=== PATIENT | female | born 1950 | race Caucasian/White ===

== ENCOUNTER → 2017-02-06 | Outpatient (CLI) | payer BC, OTHER ==
--- NOTE | 2017-02-06 21:02 | REP ---
Clinical: Dyspnea and wheezing . Comparison: 05/20/2016 . Technique: PA and lateral. Findings: The mediastinum and cardiac silhouette are normal. The lung resendiz are clear and without acute consolidation, effusion, or pneumothorax. The skeletal structures are intact and normal. Impression: 1. No acute cardiopulmonary process. Signed by Calixto Garcia MD 02/06/2017 08:53 P
== END ==
LOC: M WUC 09:55
PROVIDERS: ATTEND Family Medicine
DX: R06.00 Dyspnea, unspecified (principal); R06.2 Wheezing

== ENCOUNTER → 2017-03-22 | Outpatient (CLI) | payer MEDICARE, OTHER, BC ==
[2017-03-22 14:13] LABS: MEAN CORPUSCULAR HEMOGLOBIN 30.5 pg (27.0-33.0); MEAN CORPUSCULAR HGB CONC 31.7 g/dl (32.0-36.5); RED CELL DISTRIBUTION WIDTH 12.9 % (11.5-14.5); WHITE BLOOD COUNT 6.6 10^3/uL (4.0-10.0)
[2017-03-22 14:58] LABS: ALBUMIN 3.6 GM/DL (3.2-5.2); ALKALINE PHOSPHATASE 92 U/L (45-117); ALT/SGPT 18 U/L (12-78); ANION GAP 7 MEQ/L (8-16); AST/SGOT 13 U/L (15-37); BILIRUBIN,TOTAL 0.4 MG/DL (0.2-1.0); BLOOD UREA NITROGEN 7 MG/DL (7-18); CALCIUM LEVEL 9.3 MG/DL (8.8-10.2); CARBON DIOXIDE LEVEL 28 MEQ/L (21-32); CHLORIDE LEVEL 108 MEQ/L (98-107); CHOLESTEROL LEVEL 187 MG/DL (<200); GLOMERULAR FILTRATION RATE > 60.0 (>45); GLUCOSE, FASTING 83 MG/DL (80-110); POTASSIUM SERUM 4.4 MEQ/L (3.5-5.1); SODIUM LEVEL 143 MEQ/L (136-145); THYROXINE (T4) 15.6 UG/DL (4.5-12.0); TOTAL PROTEIN 6.6 GM/DL (6.4-8.2); TRIGLYCERIDES LEVEL 184 MG/DL (<150)
== END ==
LOC: M WUC 09:54
PROVIDERS: ATTEND Family Medicine
DX: D64.9 Anemia, unspecified (principal); R53.83 Other fatigue

== ENCOUNTER → 2017-09-20 | Outpatient (CLI) | payer MEDICARE, OTHER, BC | LOC: M WUC 09:56 | DX: R05 Cough (principal) | CPT/HCPCS: 71046 ==

== ENCOUNTER → 2017-10-30 | Outpatient (REF) | payer MEDICARE, OTHER | LOC: M LAB REF 10:44 | DX: C50.911 Malignant neoplasm of unspecified site of right female breast (principal) | CPT/HCPCS: 88305 ==

== ENCOUNTER → 2017-11-07 | Day surgery (SDC) | payer MEDICARE, BC, OTHER ==
[~2017-11-07] MED LIST: KETOROLAC 30 MG/ML VIAL (J1885) As Ordered; KETOROLAC 30 MG/ML VIAL (J1885) IV; LIDOCAINE 1% MDV 20ML VIAL As Ordered; LIDOCAINE 2% INJ 100 MG/5 ML SDV (FOR ANES.) As Ordered; LR 1,000 ML IV; MIDAZOLAM INJ 2 MG/2 ML VIAL (J2250) As Ordered; NORCO, ANEXSIA 5/325MG TABLET (HYDROcodone/ACETAMINOPHEN) PO; ONDANSETRON 4MG/2ML VIAL (J2405) As Ordered; ONDANSETRON 4MG/2ML VIAL (J2405) IV; PERCOCET 5MG/325MG TAB As Ordered; PHENYLephrine HCL 500 MCG/5 ML (100MCG/ML) SYRINGE (J2370) As Ordered; PROPOFOL 200 MG/20 ML VIAL As Ordered; dexameTHASONE 4 MG/ML 1ML VIAL (J1100) As Ordered; ePHEDrine SULFATE 25 MG/5 ML(5MG/ML) SYRINGE As Ordered; fentaNYL 100 MCG/2 ML INJECTION (J3010) As Ordered
[2017-11-07] MEDS: LIDOCAINE 5% (LIDODERM) PATCH TD (08:15)
[2017-11-07] MEDS: ceFAZolin SOD 1 GM in D5W MINI-BAG PLUS 50 ML IV (12:21)
[2017-11-07] MEDS: LIDOCAINE 1% SDV INJ 30 ML VIAL As Ordered (12:32)
[2017-11-07] MEDS: BUPIVACAINE/EPIN 0.5% 30 ML VIAL As Ordered (12:32)
[2017-11-07] MEDS: METHYLENE BLUE 0.5% (5MG/ML) 10 ML AMP (PROVAYBLUE)(Q9968 PER 1MG) As Ordered (12:32)
== END | disposition home or self-care (01) ==
LOC: M SDC 08:02
DX: C50.411 Malignant neoplasm of upper-outer quadrant of right female breast (principal); E03.9 Hypothyroidism, unspecified; Z79.899 Other long term (current) drug therapy; F17.210 Nicotine dependence, cigarettes, uncomplicated; Z17.0 Estrogen receptor positive status [ER+]
CPT/HCPCS: 19125

== ENCOUNTER 2017-11-27 14:09 | Outpatient (RCR) | payer MEDICARE, BC, OTHER | END 2017-12-08 | LOC: M ONCR 14:09 | DX: C50.411 Malignant neoplasm of upper-outer quadrant of right female breast (principal) ==

== ENCOUNTER 2017-12-10 14:04 | Outpatient (RCR) | payer MEDICARE, BC, OTHER | END 2018-01-08 | LOC: M ONCR 14:04 | DX: C50.411 Malignant neoplasm of upper-outer quadrant of right female breast (principal) | CPT/HCPCS: 77300 ==

== ENCOUNTER 2018-01-09 09:56 | Outpatient (RCR) | payer MEDICARE, BC, OTHER | END 2018-02-08 | LOC: M ONCR 09:56 | DX: C50.411 Malignant neoplasm of upper-outer quadrant of right female breast (principal) | CPT/HCPCS: 77336 ==

== ENCOUNTER → 2018-02-20 | Outpatient (CLI) | payer MEDICARE, BC, OTHER | LOC: M ONCR 10:13 | DX: C50.411 Malignant neoplasm of upper-outer quadrant of right female breast (principal) | CPT/HCPCS: G0463 ==

== ENCOUNTER → 2018-04-22 | Outpatient (CLI) | payer MEDICARE, BC, OTHER | LOC: M WUC 13:15 | DX: R05 Cough (principal) | CPT/HCPCS: 71046 ==

== ENCOUNTER → 2018-05-21 | Outpatient (CLI) | payer MEDICARE, BC, OTHER | LOC: M ONCR 12:53 | DX: C50.411 Malignant neoplasm of upper-outer quadrant of right female breast (principal) ==

== ENCOUNTER → 2018-08-13 | Outpatient (CLI) | payer MEDICARE, BC, OTHER ==
[~2018-08-13] MED LIST changes: -KETOROLAC 30 MG/ML VIAL (J1885) As Ordered; -KETOROLAC 30 MG/ML VIAL (J1885) IV; +LEVO200T4 PO; -LIDOCAINE 1% MDV 20ML VIAL As Ordered; -LIDOCAINE 2% INJ 100 MG/5 ML SDV (FOR ANES.) As Ordered; -LR 1,000 ML IV; -MIDAZOLAM INJ 2 MG/2 ML VIAL (J2250) As Ordered; -NORCO, ANEXSIA 5/325MG TABLET (HYDROcodone/ACETAMINOPHEN) PO; -ONDANSETRON 4MG/2ML VIAL (J2405) As Ordered; -ONDANSETRON 4MG/2ML VIAL (J2405) IV; -PERCOCET 5MG/325MG TAB As Ordered; -PHENYLephrine HCL 500 MCG/5 ML (100MCG/ML) SYRINGE (J2370) As Ordered; -PROPOFOL 200 MG/20 ML VIAL As Ordered; +SILV40CR EXT; -dexameTHASONE 4 MG/ML 1ML VIAL (J1100) As Ordered; -ePHEDrine SULFATE 25 MG/5 ML(5MG/ML) SYRINGE As Ordered; -fentaNYL 100 MCG/2 ML INJECTION (J3010) As Ordered
--- NOTE | 2018-08-13 17:25 | REP ---
Chest x-ray: Two views. History: Cough. Comparison chest x-ray: April 22, 2018. Findings: The lungs are symmetrically aerated and free of infiltrate. Pleural angles are sharp. Heart is not enlarged. The aorta is calcific and a little tortuous. There are mild degenerative changes in the thoracic spine. There are surgical clips projecting over the right chest. These may be in the right breast soft tissues. Impression: No active disease. Electronically Signed by Reed Kay MD 08/13/2018 05:51 P
[2018-08-14 09:56] LABS: INFLUENZA A AMPLIFICATION NEGATIVE (NEGATIVE); INFLUENZA B AMPLIFICATION NEGATIVE (NEGATIVE)
== END ==
LOC: M WUC 16:05
PROVIDERS: ATTEND Internal Medicine
DX: M51.34 Other intervertebral disc degeneration, thoracic region (principal); R05 Cough; R50.9 Fever, unspecified

== ENCOUNTER → 2018-11-06 | Outpatient (CLI) | payer MEDICARE, BC, OTHER ==
--- NOTE | 2018-11-07 07:25 | RADONC ---
RADIATION ONCOLOGY FOLLOWUP NOTE: DATE: 11/06/2018 CHART NUMBER: [id number] DIAGNOSIS: Right breast cancer. STAGE: I A, T1c N0M0, grade 3, ER positive, MI positive, HER2/jun negative. ECOG PERFORMANCE STATUS: 0 Ms. Stern is a very pleasant 68-year-old white female with the diagnosis of a stage I A, T1c N0M0, grade 3, ER positive, MI positive, HER2/jun negative, infiltrating ductal carcinoma of the right breast who is presenting to us today for routine followup visit 10 months post completion of external beam radiation therapy. The patient presents today reporting that she is doing quite well with no complaints at this time related to radiation therapy or disease. She has no significant pain or discomfort. REVIEW OF SYSTEMS: The patient's review of systems is noncontributory. She denies nausea, vomiting, fevers, chills, night sweats, diplopia, headaches, anxiety or depression, anorexia, weight loss, visual disturbances, chest pain, urinary or bowel difficulties, bone pain, or neurological problems. PHYSICAL EXAMINATION: The patient is a well-developed, well-nourished female in no acute distress. HEENT exam is normocephalic, atraumatic. Extraocular movements are intact. There is no palpable cervical, supraclavicular, infraclavicular, axillary, or inguinal lymphadenopathy present. Lungs are clear to auscultation and percussion. Heart has a regular rate and rhythm. Abdomen is benign with no hepatosplenomegaly, masses, or tenderness. Breast examination reveals no masses or discharge bilaterally. Skeletal examination reveals no tenderness to pressure or percussion of the bony skeleton. Extremities reveal no clubbing, cyanosis, or edema. Neurologic exam is grossly intact, as is the remainder of the physical examination. ASSESSMENT: The patient is clinically MARK at this time and I have scheduled bilateral screening mammography to be done for March 13, 2019. I will be seeing her in followup after the mammogram on March 19, 2019. She will also continue be followed by her other physicians in the meantime. cc: DO Marian Rendon MD
== END ==
LOC: M ONCR 09:39
PROVIDERS: ATTEND Radiology Radiation Oncology
DX: C50.411 Malignant neoplasm of upper-outer quadrant of right female breast (principal)

== ENCOUNTER → 2019-04-02 | Outpatient (CLI) | payer MEDICARE, BC, OTHER ==
[~2019-04-02] MED LIST changes: +ALBU8.5H; +CHOL100029 PO; +LEVAINH INH; +LIDOCAINE 1% MDV 20ML VIAL As Ordered ONE
[2019-04-02 11:22] VITALS: BP 150/85
--- NOTE | 2019-04-02 12:17 | REP ---
POSTBIOPSY MAMMOGRAM RIGHT BREAST: Postbiopsy mammographic images of the right breast are performed in the MLO, ML and CC as well as axillary CC projections. A metallic biopsy marking clip is seen at the superolateral margin of the spiculated mass like density in the upper outer quadrant of the right breast, marking the area of biopsy. Sonographic images show that the biopsy needle was clearly within the center of the lesion sonographically. Electronically Signed by Wally Stark MD 04/04/2019 12:43 A
--- NOTE | 2019-04-02 12:18 | REP ---
ULTRASOUND RIGHT BREAST: Real-time sonographic evaluation of the right breast performed at the site of the palpable mass seen on prior mammogram and ultrasound from [facility]. A complex heterogeneous mass is seen at the 10 o'clock position measuring 3.1 x 1.6 x 2.4 cm. Ultrasound guided biopsy is subsequently performed. Electronically Signed by Wally Stark MD 04/04/2019 12:44 A
--- NOTE | 2019-04-05 17:29 | REP ---
Ultrasound-guided right breast biopsy. The procedure was performed by BARBARA Gray, under the direct supervision of Dr. Stark. The risks and benefits of the procedure were explained to the patient and informed consent was obtained both verbally and written. Directly prior to the start of the procedure, a formal timeout was completed in the procedure room. The right breast mass was localized using ultrasound guidance. The skin was prepped and draped in a sterile fashion. 7 ml of 1% lidocaine was used as a local anesthetic. Using ultrasound guidance a 13-gauge suction assisted Mammotome needle was inserted and 6 core biopsy samples were obtained. A marker clip was placed at the biopsy site. The patient tolerated the procedure well and there were no immediate complications. After the appropriate monitored convalescence the patient was discharged from the department. Reviewed by BARBARA Qureshi 04/02/2019 03:18 P Electronically Signed by Wally Stark MD 04/05/2019 05:20 P
== END ==
LOC: M IRPRO 09:45
PROVIDERS: ATTEND Surgery
DX: R92.8 Other abnormal and inconclusive findings on diagnostic imaging of breast (principal); Z79.899 Other long term (current) drug therapy; F17.210 Nicotine dependence, cigarettes, uncomplicated; Z85.3 Personal history of malignant neoplasm of breast

== ENCOUNTER → 2019-05-23 | Outpatient (CLI) | payer MEDICARE, BC, OTHER ==
[~2019-05-23] MED LIST changes: -LIDOCAINE 1% MDV 20ML VIAL As Ordered ONE
--- NOTE | 2019-05-23 10:37 | REP ---
CT CHEST WITHOUT CONTRAST: LOW-DOSE SCREENING EXAM. HISTORY: Nicotine dependence. Comparison is made with images from CT abdomen dated August 23, 2013. There are treatment planning chest CT images from December 10, 2017 which are also reviewed. The patient has right breast carcinoma post radiation. CT FINDINGS: There are minimal pleuroparenchymal fibrotic changes along the right anterolateral chest wall related to the breast radiation. Post-treatment changes are seen in the soft tissues of the right breast. There is a small benign perifissural nodule in the minor fissure on the right today as seen on page 49 of 108 in series 201. This is visible on the prior CT images from December 10, 2017 and is unchanged. It measures 3 mm. No other pulmonary nodule is appreciated. IMPRESSION: Lung-RADS category 1 findings. Repeat screening study recommended in 1 year. Electronically Signed by Reed Kay MD 05/23/2019 01:02 P
== END ==
LOC: M RAD 09:32
PROVIDERS: ATTEND Internal Medicine
DX: F17.210 Nicotine dependence, cigarettes, uncomplicated (principal)

== ENCOUNTER → 2019-08-25 | Outpatient (CLI) | payer MEDICARE, BC, OTHER ==
[~2019-08-25] MED LIST changes: +ISOVUE-370 76% 100ML VIAL (Q9967) As Ordered ONE
--- NOTE | 2019-08-25 13:09 | REP ---
CT pulmonary angiogram: With IV contrast. History: Shortness of breath. Comparison studies: Comparison chest CT without contrast May 23, 2019. Contrast dose: 100 ML of Isovue [address] technique: Helical scanning is acquired and overlapping 1.5 mm and contiguous 3 mm axial images are reformatted. In addition, maximum intensity projection and multiplanar re-formation images are generated in sagittal and coronal imaging projections. CT pulmonary angiographic findings: There is good opacification of the pulmonary arterial tree.. No filling defect or vessel cutoff is seen to suggest pulmonary embolism. Thoracic aorta enhances homogeneously. There is no evidence of aneurysm or dissection. There is no evidence of pleural or pericardial effusion. No hilar or mediastinal mass or adenopathy is observed. No pulmonary mass or significant pulmonary nodule is appreciated. No adrenal lesion is seen. The visualized upper abdominal structures are unremarkable. A tiny accessory splenule is seen in the left upper quadrant. The patient has a history breast carcinoma and there are post-treatment changes in the right breast including postoperative fibrosis, surgical clips, and right breast skin thickening. Impression: No CT evidence of pulmonary embolus. No active cardiopulmonary disease. Post-treatment changes seen in the right breast. Electronically Signed by Reed Kay MD 08/25/2019 01:01 P
[2019-08-25 14:24] LABS: NT-PRO BNP 121 PG/ML (<125); TROPONIN I < 0.02 NG/ML (< 0.10)
== END ==
LOC: M RAD 11:25
PROVIDERS: ATTEND Internal Medicine
DX: R07.89 Other chest pain (principal); R06.02 Shortness of breath
CPT/HCPCS: 36415; 71275; 83880; 84484; Q9967

== ENCOUNTER → 2020-02-12 | Outpatient (CLI) | payer MEDICARE, BC ==
[~2020-02-12] MED LIST changes: -ISOVUE-370 76% 100ML VIAL (Q9967) As Ordered ONE
--- NOTE | 2020-02-12 12:36 | REPMRS ---
Patient History The patient states she had a clinical breast exam in March 2019. No known family history of cancer. Benign US guided breast biopsy of the right breast, April 02, 2019. Malignant radio exam breast specimen of the right breast, November 07, 2017. Benign excisional biopsy of the left breast. 3D TOMOSYNTHESIS WAS PERFORMED. JUNIE CHIP Kena. Digital Woman Screen Mammo: February 12, 2020 - Exam #: [id number] Bilateral CC and MLO view(s) were taken. Technologist: Noemi Gallagher Technologist Prior study comparison: April 02, 2019, right breast digital mammo diagnostic unilateral, performed at [facility]. November 07, 2017, right breast digital mammo diagnostic unilateral, performed at [facility]. FINDINGS: There are scattered fibroglandular densities. There is a fairly symmetric fibroglandular pattern in both breasts. There has been no interval development of masses, areas of architectural distortion or clusters of microcalcifications typical of malignancy. There are expected post surgical and radiation changes of the right breast. Assessment: BI-RADS/ACR category 2 mammogram. Benign Findings. Recommendation Routine screening mammogram of both breasts in 1 year (for women over age 40). This mammogram was interpreted with the aid of an FDA-approved computer-aided dectection system. Electronically Signed By: Wally Stark MD 02/12/20 [id number]
== END ==
LOC: M WHC 09:29
PROVIDERS: ATTEND Internal Medicine
DX: Z12.31 Encounter for screening mammogram for malignant neoplasm of breast (principal); Z86.018 Personal history of other benign neoplasm; Z85.3 Personal history of malignant neoplasm of breast

== ENCOUNTER 2020-08-28 12:33 | Emergency (ER) | payer MEDICARE, BC, OTHER ==
[~2020-08-28] VITALS: Ht 167.6 cm; Wt 79.5 kg
[2020-08-28] MEDS ORDERED: NS 1,000 ML IV ONE (13:00)
--- NOTE | 2020-08-28 13:24 | REP ---
INDICATION: dizzy. COMPARISON: 08/13/2018. TECHNIQUE: Portable AP chest with the patient sitting. FINDINGS: The lung resendiz are clear. Cardiac size is normal. The fabi, mediastinum and skeletal structures are unremarkable. There are surgical clips along the right lateral chest wall, possibly in the right breast. IMPRESSION: Essentially negative portable chest <Electronically signed by Wally Barahona > 08/28/20 [id number]
[2020-08-28] MEDS ORDERED: SERT25TA21 (13:30)
[2020-08-28 13:40] LABS: BASO # 0.1 10^3/uL (0.0-0.2); BASO % 0.8 % (0.0-1.0); EOS # 0.2 10^3/uL (0.0-0.5); EOS % 2.4 % (0.0-3.0); HEMOGLOBIN 15.9 g/dl (12.0-15.5); LYMPH # 1.6 10^3/uL (1.5-5.0); LYMPH % 21.1 % (24.0-44.0); MEAN CORPUSCULAR HEMOGLOBIN 30.8 pg (27.0-33.0); MEAN CORPUSCULAR HGB CONC 32.4 g/dl (32.0-36.5); MEAN CORPUSCULAR VOLUME 94.8 fl (80.0-96.0); MONO # 0.6 10^3/uL (0.0-0.8); MONO % 7.5 % (2.0-8.0); NEUTROPHILS # 5.2 10^3/uL (1.5-8.5); NEUTROPHILS % 67.4 % (36.0-66.0); PLATELET COUNT, AUTOMATED 276 10^3/uL (150-450); RED BLOOD COUNT 5.17 10^6/uL (4.00-5.40); WHITE BLOOD COUNT 7.8 10^3/uL (4.0-10.0)
[2020-08-28 13:54] LABS: INR 0.88; PROTHROMBIN TIME 12.2 SECONDS (12.5-14.3)
--- NOTE | 2020-08-28 14:18 | REPVR ---
PROCEDURE INFORMATION: Exam: CT Head Without Contrast Exam date and time: 08/28/2020 1:53 PM Age: 69 years old Clinical indication: Pain; Headache not specified; Additional info: MARSH TECHNIQUE: Imaging protocol: Computed tomography of the head without contrast. Radiation optimization: All CT scans at this facility use at least one of these dose optimization techniques: automated exposure control; mA and/or kV adjustment per patient size (includes targeted exams where dose is matched to clinical indication); or iterative reconstruction. COMPARISON: No relevant prior studies available. FINDINGS: Brain: There is minimal low attenuation within the periventricular white matter related to the sequela prior small vessel ischemia. There is no parenchymal mass or acute parenchymal hemorrhage. There is preservation of the goode-white junction Cerebral ventricles: No ventriculomegaly. Bones/joints: No acute fracture. Paranasal sinuses: There is opacification of a posterior right ethmoid air cell. Mastoid air cells: Visualized mastoid air cells are well aerated. Soft tissues: Unremarkable. IMPRESSION: There is no acute intracranial abnormality. Electronically signed by: Brent Gonzalez On 08/28/2020 14:18:56 PM
[2020-08-28 14:19] LABS: ALBUMIN 3.7 GM/DL (3.2-5.2); ALT/SGPT 20 U/L (12-78); BILIRUBIN,DIRECT < 0.1 MG/DL (0.0-0.2); BILIRUBIN,TOTAL 0.2 MG/DL (0.2-1.0); BLOOD UREA NITROGEN 7 MG/DL (7-18); CALCIUM LEVEL 9.2 MG/DL (8.8-10.2); CARBON DIOXIDE LEVEL 27 MEQ/L (21-32); CHLORIDE LEVEL 110 MEQ/L (98-107); CREATININE FOR GFR 0.56 MG/DL (0.55-1.30); GLOMERULAR FILTRATION RATE > 60.0 (>45); GLUCOSE, FASTING 95 MG/DL (70-100); SODIUM LEVEL 143 MEQ/L (136-145); TOTAL PROTEIN 6.9 GM/DL (6.4-8.2)
[2020-08-28] MEDS ORDERED: MECL1TAB31 PO (14:44)
[2020-08-28 14:48] VITALS: BP 121/66
--- NOTE | 2020-08-29 08:15 | ECGEPIP ---
[facility] - ED Test Date: 2020-08-28 Pat Name: LUIS ALVARADO Department: Room: - Gender: Female [employer]: ILDEFONSO : 1950 Requested By: NEGRITA Culver Order Number: [id number] Reading MD: Kimberly Fox Measurements Intervals Elmer Rate: 76 P: 31 MS: 106 QRS: 16 QRSD: 70 T: 42 QT: 404 QTc: 454 Interpretive Statements Sinus rhythm with short MS Nonspecific T wave abnormality similar 07/11/14 Electronically Signed on 08-29-2020 8:15:30 EDT by Kimberly Fox
== END 2020-08-28 14:55 | disposition home or self-care (01) ==
LOC: M ED 12:33
DX: R42 Dizziness and giddiness (principal); F17.200 Nicotine dependence, unspecified, uncomplicated; Z79.899 Other long term (current) drug therapy

== ENCOUNTER → 2021-04-21 | Outpatient (CLI) | payer MEDICARE, BC, OTHER ==
[~2021-04-21] MED LIST changes: +MECL1TAB31 PO; +SERT25TA21
--- NOTE | 2021-04-21 15:59 | REP ---
INDICATION: LUMP UNDER LT CLAVICAL / H/O BREAST CA ? METS COMPARISON: Multiple the latest 08/25/2019 CT angio chest TECHNIQUE: Standard helical technique without intravenous contrast FINDINGS: There is no mediastinal or hilar adenopathy. There are no pleural or pericardial effusions. There is no significant change in appearance of the imaged upper abdomen. Since the last examination numerous lytic lesions have developed in the manubrium sternum. The pattern is "month eaten" Evaluation of the lung resendiz shows no new abnormal nodules, masses, or opacities. 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 Conventional bone scintigraphy is recommended to assess for additional sites of metastatic disease. <Electronically signed by Tomer Pitt > 04/21/21 [id number]
== END ==
LOC: M RAD 15:07
PROVIDERS: ATTEND Internal Medicine
DX: R22.2 Localized swelling, mass and lump, trunk (principal); Z85.3 Personal history of malignant neoplasm of breast

== ENCOUNTER → 2021-05-02 | Outpatient (CLI) | payer MEDICARE, BC, OTHER ==
[~2021-05-02] MED LIST changes: -ALBU8.5H; +ALBU8.5H INH; +ANOR1AER INH; +D31000TA2 PO; -SERT25TA21; +SERT25TA21 PO
--- NOTE | 2021-05-03 10:23 | REP ---
INDICATION: RESTAGING HISTORY OF BREAST CANCER. COMPARISON: The CT examination of the chest of 04/21/2021 was reviewed. TECHNIQUE: After the intravenous administration of 9.32 mCi of FDG 18 triplane whole-body PET-CT was performed from the skull base to the mid thigh. FINDINGS: There is extensive hypermetabolic activity seen in the manubrium sternum with a maximal SUV value of 15.69. There is left adrenal gland hypermetabolism with a maximal SUV value of 3.10. There is hypermetabolism in the dermal and subdermal region in the right breast the skin of which appears thickened by CT. This has a maximal SUV value of 2.64. There is an additional area of increased FDG avidity adjacent to multiple surgical clips in right breast, however, this area is not hypermetabolic There is diffuse multifocal abnormal hypermetabolic activity seen throughout the axial skeleton with a maximal SUV value of 3.99. There is a focus of abnormal hypermetabolic activity seen in the proximal right humerus with a maximal SUV value of 2.89. Areas of abnormal hypermetabolism are also seen in the proximal femora and within the pelvis. No other areas of abnormal hypermetabolic activity are seen in the neck, chest, abdomen, or pelvis. IMPRESSION: 1. 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 2. There is right breast hypermetabolism which needs to be evaluated clinically. Our records show the patient's last mammogram was 02/12/2020. It should be remembered that the mammography cannot effectively evaluate the skin. 3. Other findings as described above. <Electronically signed by Tomer Pitt > 05/03/21 102
== END ==
LOC: M PLARAD 12:30
PROVIDERS: ATTEND Internal Medicine
DX: R93.89 Abnormal findings on diagnostic imaging of other specified body structures (principal); C79.51 Secondary malignant neoplasm of bone; R59.1 Generalized enlarged lymph nodes; Z85.3 Personal history of malignant neoplasm of breast
CPT/HCPCS: 78815; A9552

== ENCOUNTER → 2021-05-13 | Outpatient (CLI) | payer MEDICARE, BC, OTHER ==
[~2021-05-13] MED LIST changes: +LIDOCAINE 1% MDV 20ML VIAL As Ordered ONE
[2021-05-13 14:09] VITALS: BP 138/68
--- NOTE | 2021-05-13 17:39 | REP ---
INDICATION: BREAST CA W/ STERNUM MASS. COMPARISON: None. TECHNIQUE: The procedure was procedure performed under the direct supervision of Dr. Stark. Patient has a history of extensive hypermetabolic activity in the manubrium sternum seen on a previous PET scan dated 05/02/2021. The risks and benefits of the procedure were explained to the patient and informed consent was obtained. The manubrium was localized using CT guidance. The skin was prepped and draped in a sterile fashion. 1% lidocaine was used as a local anesthetic. Using CT guidance, a bone biopsy system was inserted. Five passes were made yielding 3 cores. Estimated blood loss: Less than 1 mL The patient tolerated the procedure well and there were no immediate complications. After the appropriate amount to monitored convalescence the patient was discharged from the department. FINDINGS: None IMPRESSION: CT-guided manubrium biopsy. <Electronically signed by Freddie Segundo > 05/13/21 170 <Electronically signed by Wally Stark > 05/13/21 [id number]
== END ==
LOC: M IRPRO 12:28
PROVIDERS: ATTEND Internal Medicine Medical Oncology
DX: C79.51 Secondary malignant neoplasm of bone (principal); R22.2 Localized swelling, mass and lump, trunk; Z85.3 Personal history of malignant neoplasm of breast

== ENCOUNTER → 2021-05-16 | Outpatient (CLI) | payer MEDICARE, BC, OTHER ==
[~2021-05-16] MED LIST changes: -LIDOCAINE 1% MDV 20ML VIAL As Ordered ONE
--- NOTE | 2021-05-16 14:20 | REP ---
INDICATION: ABNORMAL PET SCAN RIGHT BREAST HYPERMETABOLISM. COMPARISON: Screening mammogram, 02/12/2020. TECHNIQUE: 2D and 3D cc and MLO views of both breasts were obtained. FINDINGS: The Volpara volumetric breast density pattern is b, there are scattered areas of fibroglandular density. There is stable architectural distortion, trabecular thickening, and skin thickening of the right breast, status post partial mastectomy and radiation therapy. There is a biopsy clip and surgical clips in the partial mastectomy site. The left breast has an unremarkable unchanged appearance. IMPRESSION: BIRADS/ACR : Category 2: Benign finding. The patient letter being requested is M2. RECOMMENDATION: In this patient with suspected bony metastatic disease and possible right breast skin involvement, right breast skin biopsy may be considered. Patient should continue yearly screening mammography. <Electronically signed by Dl Tena > 05/16/21 [id number]
== END ==
LOC: M WHC 12:54
PROVIDERS: ATTEND Internal Medicine
DX: Z85.3 Personal history of malignant neoplasm of breast (principal)
CPT/HCPCS: 77066; G0279

== ENCOUNTER → 2021-08-15 | Outpatient (CLI) | payer MEDICARE, BC, OTHER ==
[~2021-08-15] MED LIST changes: -D31000TA2 PO; +IBRA125C PO; +LETR2.5T2 PO; +VITA100093 PO
== END ==
LOC: M PLARAD 08:07
PROVIDERS: ATTEND Internal Medicine Medical Oncology
DX: C50.811 Malignant neoplasm of overlapping sites of right female breast (principal)
CPT/HCPCS: 78815; A9552

== ENCOUNTER → 2021-11-29 | Outpatient (CLI) | payer MEDICARE, BC, OTHER ==
[~2021-11-29] MED LIST changes: +GASTROGRAFIN SOLUTION 30ML (Q9963) As Ordered ONE; +ISOVUE-370 76% 100ML VIAL As Ordered ONE
== END ==
LOC: M RAD 08:23
PROVIDERS: ATTEND Internal Medicine Medical Oncology
DX: Z85.3 Personal history of malignant neoplasm of breast (principal); R91.1 Solitary pulmonary nodule; C79.51 Secondary malignant neoplasm of bone
CPT/HCPCS: 71260; 74177; Q9963; Q9967

== ENCOUNTER → 2022-02-16 | Outpatient (CLI) | payer MEDICARE, BC, OTHER ==
[~2022-02-16] MED LIST changes: -GASTROGRAFIN SOLUTION 30ML (Q9963) As Ordered ONE; -ISOVUE-370 76% 100ML VIAL As Ordered ONE; +MELO15TA28
== END ==
LOC: M PLARAD 10:01
PROVIDERS: ATTEND Internal Medicine Medical Oncology
DX: C50.811 Malignant neoplasm of overlapping sites of right female breast (principal); C79.51 Secondary malignant neoplasm of bone
CPT/HCPCS: 78815; A9552

== ENCOUNTER 2022-10-12 16:09 | Emergency (ER) | payer MEDICARE, BC, OTHER ==
[~2022-10-12] VITALS: Ht 167.6 cm; Wt 88.7 kg
[~2022-10-12 16:09] MED LIST changes: +SYNT25TA PO
[2022-10-12 17:52] LABS: LIPASE 31 U/L (12-53)
[2022-10-12 17:54] LABS: ALBUMIN 3.9 G/DL (3.2-5.2); ALKALINE PHOSPHATASE 60 U/L (46-116); ALT/SGPT 20 U/L (7.0-40); AST/SGOT 16 U/L (<34); BILIRUBIN,DIRECT < 0.1 MG/DL (<0.4); BILIRUBIN,TOTAL 0.3 MG/DL (0.3-1.2); BLOOD UREA NITROGEN 11 MG/DL (9-23); CALCIUM LEVEL 9.5 MG/DL (8.3-10.6); CARBON DIOXIDE LEVEL 27 MMOL/L (20-31); CHLORIDE LEVEL 107 MMOL/L (98-107); CK-MB VALUE MASS 1.4 NG/ML (<3.6); CPK CREATINE PHOSPHOKINASE 69 U/L (34-145); CREATININE FOR GFR 0.61 MG/DL (0.55-1.30); GLOMERULAR FILTRATION RATE > 60.0 (>39); GLUCOSE, FASTING 112 MG/DL (74-106); MB/CK RELATIVE INDEX 2.02 (< OR =4); POTASSIUM SERUM 4.5 MMOL/L (3.5-5.1); SODIUM LEVEL 139 MMOL/L (136-145); TOTAL PROTEIN 6.7 G/DL (5.7-8.2)
[2022-10-12 17:59] LABS: BASO # 0.1 10^3/uL (0.0-0.2); BASO % 0.7 % (0.0-1.0); EOS # 0.1 10^3/uL (0.0-0.5); EOS % 0.5 % (0.0-3.0); HEMATOCRIT 52.3 % (36.0-47.0); HEMOGLOBIN 17.3 g/dl (12.0-15.5); LYMPH # 1.3 10^3/uL (1.5-5.0); LYMPH % 13.8 % (24.0-44.0); MEAN CORPUSCULAR HEMOGLOBIN 31.1 pg (27.0-33.0); MEAN CORPUSCULAR HGB CONC 33.1 g/dl (32.0-36.5); MEAN CORPUSCULAR VOLUME 93.9 fl (80.0-96.0); MONO # 0.4 10^3/uL (0.0-0.8); MONO % 3.9 % (2.0-8.0); NEUTROPHILS # 7.6 10^3/uL (1.5-8.5); NEUTROPHILS % 79.9 % (36.0-66.0); PLATELET COUNT, AUTOMATED 277 10^3/uL (150-450); RED BLOOD COUNT 5.57 10^6/uL (4.00-5.40); WHITE BLOOD COUNT 9.5 10^3/uL (4.0-10.0)
[2022-10-12 18:15] LABS: INR 0.9; PARTIAL THROMBOPLASTIN TIME 28.7 SECONDS (24.8-34.2); PROTHROMBIN TIME 12.3 SECONDS (12.5-14.5)
[2022-10-12] MEDS ORDERED: ISOVUE-370 76% 100ML VIAL As Ordered ONE (18:19)
[2022-10-12 18:55] LABS: CK-MB VALUE MASS 1.3 NG/ML (<3.6)
[2022-10-12 18:56] LABS: MB/CK RELATIVE INDEX 2.13 (< OR =4)
[2022-10-12 20:00] VITALS: BP 166/90
== END 2022-10-12 20:56 | disposition home or self-care (01) ==
LOC: M ED 16:09
DX: R07.89 Other chest pain (principal); J45.909 Unspecified asthma, uncomplicated; J44.9 Chronic obstructive pulmonary disease, unspecified; E03.9 Hypothyroidism, unspecified; Z85.3 Personal history of malignant neoplasm of breast; F17.210 Nicotine dependence, cigarettes, uncomplicated; Z79.899 Other long term (current) drug therapy; Z79.51 Long term (current) use of inhaled steroids
CPT/HCPCS: 71045; 71275; 80048; 80076; 82550; 82553; 83690; 84484; 85025; 85610; 85730; 87486; 87581; 87633; 87798; 93005; 93041; 94760; 99285; Q9967

== ENCOUNTER → 2022-10-24 | Outpatient (CLI) | payer MEDICARE, BC, OTHER ==
[~2022-10-24] MED LIST changes: +GASTROGRAFIN SOLUTION 30ML As Ordered ONE; +ISOVUE-370 76% 100ML VIAL As Ordered ONE
== END ==
LOC: M RAD 09:00
PROVIDERS: ATTEND Internal Medicine Medical Oncology
DX: C50.919 Malignant neoplasm of unspecified site of unspecified female breast (principal)
CPT/HCPCS: 71260; 74177; Q9963; Q9967

== ENCOUNTER → 2023-03-22 | Outpatient (CLI) | payer MEDICARE, BC, OTHER ==
[~2023-03-22] MED LIST changes: +MECL-209 PO; -MECL1TAB31 PO; +VALS40TA9 PO
== END ==
LOC: M RAD 13:34
PROVIDERS: ATTEND Internal Medicine Medical Oncology
DX: C50.919 Malignant neoplasm of unspecified site of unspecified female breast (principal)
CPT/HCPCS: 71260; 74177; 78306; A9503; Q9963; Q9967

== ENCOUNTER → 2023-08-16 | Outpatient (CLI) | payer MEDICARE, BC, OTHER ==
[~2023-08-16] MED LIST changes: -GASTROGRAFIN SOLUTION 30ML As Ordered ONE
== END ==
LOC: M RAD 07:30
PROVIDERS: ATTEND Internal Medicine
DX: R06.02 Shortness of breath (principal)
CPT/HCPCS: 71275; Q9967

== ENCOUNTER → 2023-08-20 | Outpatient (REF) | payer MEDICARE, BC, OTHER ==
[~2023-08-20] MED LIST changes: -ISOVUE-370 76% 100ML VIAL As Ordered ONE
[2023-08-20 19:34] LABS: FERRITIN 96.4 NG/ML (7.3-270.7); PERCENT SATURATION 26.8 % (13.2-45.0)
== END ==
LOC: M LAB REF 17:58
PROVIDERS: ATTEND Internal Medicine
DX: F50.9 Eating disorder, unspecified (principal)

== ENCOUNTER → 2024-03-28 | Outpatient (CLI) | payer MEDICARE, BC ==
[~2024-03-28] MED LIST changes: +GASTROGRAFIN SOLUTION 30ML ONE; +ISOVUE-370 76% 100ML VIAL ONE; +METO1TAB87 PO; +OLME20TA50 PO
== END ==
LOC: M PLAIMG 07:37
PROVIDERS: ATTEND Internal Medicine Medical Oncology
DX: C50.919 Malignant neoplasm of unspecified site of unspecified female breast (principal)
CPT/HCPCS: 71260; 74177; Q9963; Q9967

== ENCOUNTER → 2024-05-16 | Outpatient (REF) | payer MEDICARE, BC ==
[~2024-05-16] MED LIST changes: -GASTROGRAFIN SOLUTION 30ML ONE; -ISOVUE-370 76% 100ML VIAL ONE; +LEVA15HF2 INH; -LEVAINH INH
[2024-05-16 19:26] LABS: RSV AMPLIFICATION NEGATIVE (NEGATIVE)
== END ==
LOC: M LAB REF 16:21
PROVIDERS: ATTEND Internal Medicine
DX: R06.02 Shortness of breath (principal)

== ENCOUNTER → 2024-07-23 | Outpatient (CLI) | payer MEDICARE, BC ==
[~2024-07-23] MED LIST changes: +ISOVUE-370 76% 100ML VIAL As Ordered ONE; +METO25TA4 PO
== END ==
LOC: M RAD 10:43
PROVIDERS: ATTEND Nurse Practitioner Women's Health
DX: C50.919 Malignant neoplasm of unspecified site of unspecified female breast (principal); C79.51 Secondary malignant neoplasm of bone
CPT/HCPCS: 71260; 74177; Q9967

== ENCOUNTER → 2024-10-21 | Outpatient (CLI) | payer MEDICARE, BC ==
[~2024-10-21] MED LIST changes: +ALBU10.7; +ANOR1AER; +IBUP200C25 PO; -ISOVUE-370 76% 100ML VIAL As Ordered ONE
== END ==
LOC: M PLARAD 07:42
PROVIDERS: ATTEND Nurse Practitioner Women's Health
DX: C50.811 Malignant neoplasm of overlapping sites of right female breast (principal)
CPT/HCPCS: 78815; A9552

== ENCOUNTER 2024-12-18 11:13 | Inpatient (IN) | payer MEDICARE, BC ==
[~2024-12-18] VITALS: Ht 167.6 cm; Wt 81.9 kg
[~2024-12-18 11:13] MED LIST changes: -ALBU10.7; +ALBU10.7 INH; -ANOR1AER
[2024-12-18] MEDS ORDERED: PRED20TA PO (11:25)
[2024-12-18] MEDS ORDERED: CEFD250S26 PO (11:25)
[2024-12-18 12:09] LABS: BASO # 0.0 10^3/uL (0.0-0.2); BASO % 0.3 % (0.0-1.0); EOS # 0.0 10^3/uL (0.0-0.5); EOS % 0.2 % (0.0-3.0); LYMPH # 1.5 10^3/uL (1.5-5.0); LYMPH % 15.6 % (24.0-44.0); MONO # 0.3 10^3/uL (0.0-0.8); MONO % 3.5 % (2.0-8.0); NEUTROPHILS # 7.5 10^3/uL (1.5-8.5); NEUTROPHILS % 79.4 % (36.0-66.0); PLATELET COUNT, AUTOMATED 276 10^3/uL (150-450)
[2024-12-18] MEDS: IPRATROPIUM 0.5 MG/ALBUTEROL 2.5 MG INH SOL UD 3 ML NEB SCH ×2 (12:22→16:29)
[2024-12-18 12:51] LABS: ALT/SGPT 21 U/L (7.0-40); AST/SGOT 25 U/L (<34); CALCIUM LEVEL 9.8 MG/DL (8.3-10.6); CARBON DIOXIDE LEVEL 26 MMOL/L (20-31); CHLORIDE LEVEL 107 MMOL/L (98-107); CK-MB VALUE MASS 2.9 NG/ML (<3.6); CREATININE FOR GFR 0.58 MG/DL (0.55-1.30); GLOMERULAR FILTRATION RATE > 90.0 (>39); POTASSIUM SERUM 4.4 MMOL/L (3.5-5.1); SODIUM LEVEL 143 MMOL/L (136-145)
[2024-12-18 12:59] LABS: CPK CREATINE PHOSPHOKINASE 77 U/L (34-145); MB/CK RELATIVE INDEX 3.76 (< OR =4)
[2024-12-18 13:22] VITALS: O2SAT 96
[2024-12-18] MEDS ORDERED: LETR2.5T2 PO (15:08)
[2024-12-18] MEDS ORDERED: HOME MED LIST COMPLETE! XX SCH (15:10)
[2024-12-18] MEDS ORDERED: ALBUTEROL SULFATE 2.5 MG/0.5 ML INH CONCENTRATE NEB SOLN NEB PRN (15:25)
[2024-12-18] MEDS: BUDESONIDE 0.5 MG/2 ML INHALATION SUSPENSION NEB SCH (16:29)
[2024-12-18] MEDS: AZITHROMYCIN 250 MG TABLET PO SCH (17:33)
[2024-12-18] MEDS: SERTRALINE HCL 25 MG TABLET PO SCH (22:21)
[2024-12-18] MEDS: CEFDINIR 300 MG CAP PO SCH (22:21)
[2024-12-18] MEDS: ACETAMINOPHEN *IV* 1,000 MG in IV 1 EA IV ONE (22:21)
[2024-12-18] MEDS: guaiFENesin ER TABLET 600 MG TAB PO SCH (22:21)
[2024-12-18] MEDS: METOPROLOL TART 25 MG TABLET PO SCH (22:22)
[2024-12-19] VITALS (8 sets, daily range): BP systolic 129–158; BP diastolic 67–74; TEMP 97.5–98.7; O2SAT 89–96
[2024-12-19] MEDS: LETROZOLE 2.5 MG TAB PO SCH (01:09)
[2024-12-19] MEDS: OLMESARTAN MEDOXOMIL 20 MG TAB PO SCH (01:09)
[2024-12-19 04:30] LABS: PLATELET COUNT, AUTOMATED 251 10^3/uL (150-450)
[2024-12-19 04:57] LABS: CALCIUM LEVEL 9.0 MG/DL (8.3-10.6); CARBON DIOXIDE LEVEL 24.0 MMOL/L (20-31); CHLORIDE LEVEL 107.0 MMOL/L (98-107); CREATININE FOR GFR 0.72 MG/DL (0.55-1.30); GLOMERULAR FILTRATION RATE 88.2 (>39); POTASSIUM SERUM 4.2 MMOL/L (3.5-5.1); SODIUM LEVEL 144.0 MMOL/L (136-145)
[2024-12-19] MEDS: LEVOTHYROXINE 100 MCG TABLET (0.1 MG) PO SCH (06:35)
[2024-12-19] MEDS: ENOXAPARIN 40 MG/0.4 ML SYRINGE (J1650 PER 10MG) SC SCH (09:43)
[2024-12-19] MEDS: ACETAMINOPHEN 325 MG TAB PO PRN (09:56)
[2024-12-19] MEDS: IPRATROPIUM 0.5 MG/ALBUTEROL 2.5 MG INH SOL UD 3 ML NEB SCH (15:13)
[2024-12-19] MEDS: KETOROLAC 30 MG/ML 1 ML VIAL IV ONE (15:54)
[2024-12-20] VITALS (8 sets, daily range): BP systolic 136–149; BP diastolic 67–73; TEMP 96.9–97.9; O2SAT 90–98
[2024-12-21] MEDS: guaiFENesin SYRUP 200 MG/10 ML UDC PO PRN (00:14)
[2024-12-21 04:00] VITALS: BP 137/73; TEMP 97.3; O2SAT 92
[2024-12-21 05:50] LABS: BASO # 0.0 10^3/uL (0.0-0.2); BASO % 0.3 % (0.0-1.0); EOS # 0.0 10^3/uL (0.0-0.5); EOS % 0.0 % (0.0-3.0); LYMPH # 1.7 10^3/uL (1.5-5.0); LYMPH % 11.6 % (24.0-44.0); MONO # 1.0 10^3/uL (0.0-0.8); MONO % 6.5 % (2.0-8.0); NEUTROPHILS # 11.9 10^3/uL (1.5-8.5); NEUTROPHILS % 79.0 % (36.0-66.0); PLATELET COUNT, AUTOMATED 281 10^3/uL (150-450)
[2024-12-21 06:21] LABS: ALT/SGPT 35 U/L (7.0-40); AST/SGOT 26 U/L (<34); CALCIUM LEVEL 9.4 MG/DL (8.3-10.6); CARBON DIOXIDE LEVEL 29 MMOL/L (20-31); CHLORIDE LEVEL 105 MMOL/L (98-107); CREATININE FOR GFR 0.64 MG/DL (0.55-1.30); GLOMERULAR FILTRATION RATE > 90.0 (>39); POTASSIUM SERUM 4.9 MMOL/L (3.5-5.1); SODIUM LEVEL 143 MMOL/L (136-145)
[2024-12-21 07:58] VITALS: BP 158/90; TEMP 97.6; O2SAT 90
[2024-12-21 11:32] VITALS: BP 150/71; TEMP 97.4; O2SAT 92
[2024-12-21 15:59] VITALS: BP 151/90; TEMP 97.6; O2SAT 92
[2024-12-21 19:19] VITALS: BP 142/78; TEMP 97.6; O2SAT 91
[2024-12-21 23:39] VITALS: BP 152/74; TEMP 97; O2SAT 93
[2024-12-22 03:31] VITALS: BP 171/77; TEMP 97; O2SAT 92
[2024-12-22 05:45] LABS: BASO # 0.1 10^3/uL (0.0-0.2); BASO % 0.4 % (0.0-1.0); EOS # 0.0 10^3/uL (0.0-0.5); EOS % 0.0 % (0.0-3.0); LYMPH # 1.5 10^3/uL (1.5-5.0); LYMPH % 10.6 % (24.0-44.0); MONO # 1.0 10^3/uL (0.0-0.8); MONO % 7.0 % (2.0-8.0); NEUTROPHILS # 11.4 10^3/uL (1.5-8.5); NEUTROPHILS % 79.2 % (36.0-66.0); PLATELET COUNT, AUTOMATED 253 10^3/uL (150-450)
[2024-12-22 06:14] LABS: ALT/SGPT 26.0 U/L (7.0-40); AST/SGOT 17.0 U/L (<34); CALCIUM LEVEL 9.4 MG/DL (8.3-10.6); CARBON DIOXIDE LEVEL 27.0 MMOL/L (20-31); CHLORIDE LEVEL 104.0 MMOL/L (98-107); CREATININE FOR GFR 0.74 MG/DL (0.55-1.30); GLOMERULAR FILTRATION RATE 85.4 (>39); MAGNESIUM LEVEL 2.1 MG/DL (1.8-2.4); POTASSIUM SERUM 5.0 MMOL/L (3.5-5.1); SODIUM LEVEL 143.0 MMOL/L (136-145)
[2024-12-22 08:13] VITALS: BP 171/81; TEMP 98.1; O2SAT 92
[2024-12-22 11:43] VITALS: BP 136/80; O2SAT 94
[2024-12-22] MEDS: amLODIPine 5 MG TAB PO SCH (11:46)
[2024-12-22 15:38] VITALS: BP 142/69; TEMP 97.7; O2SAT 92
[2024-12-22 20:42] VITALS: BP 171/77; TEMP 97.1; O2SAT 94
[2024-12-23 03:53] VITALS: BP 145/77; TEMP 96.8; O2SAT 95
[2024-12-23 05:29] LABS: BASO # 0.1 10^3/uL (0.0-0.2); BASO % 0.5 % (0.0-1.0); EOS # 0.0 10^3/uL (0.0-0.5); EOS % 0.1 % (0.0-3.0); LYMPH # 2.0 10^3/uL (1.5-5.0); LYMPH % 12.8 % (24.0-44.0); MONO # 1.2 10^3/uL (0.0-0.8); MONO % 7.8 % (2.0-8.0); NEUTROPHILS # 11.7 10^3/uL (1.5-8.5); NEUTROPHILS % 75.4 % (36.0-66.0); PLATELET COUNT, AUTOMATED 253 10^3/uL (150-450)
[2024-12-23 06:01] LABS: CALCIUM LEVEL 9.0 MG/DL (8.3-10.6); CARBON DIOXIDE LEVEL 29 MMOL/L (20-31); CHLORIDE LEVEL 103 MMOL/L (98-107); CREATININE FOR GFR 0.68 MG/DL (0.55-1.30); GLOMERULAR FILTRATION RATE > 90.0 (>39); POTASSIUM SERUM 4.4 MMOL/L (3.5-5.1); SODIUM LEVEL 141 MMOL/L (136-145)
[2024-12-23 08:29] VITALS: BP 148/90; TEMP 97.8; O2SAT 91
[2024-12-23 08:32] VITALS: BP 148/90
[2024-12-23] MEDS ORDERED: ALBU8.5H INH (10:54)
[2024-12-23] MEDS ORDERED: ALBU10.7 INH (10:54)
[2024-12-23] MEDS ORDERED: GUAI100S51 PO (10:54)
[2024-12-23] MEDS ORDERED: PRED10TA2 PO (10:54)
== END 2024-12-23 12:06 | disposition home or self-care (01) | DRG 191 ==
LOC: M ED 11:13 → M ED INP 15:22 → M PCU 23:25
PROVIDERS: ADMIT Internal Medicine; ATTEND Internal Medicine Nephrology
PROC: B246ZZZ Ultrasonography of Right and Left Heart (ICD-10-PCS; principal; 2024-12-22)
DX: J44.1 Chronic obstructive pulmonary disease with (acute) exacerbation (principal); I47.29 Other ventricular tachycardia; E03.9 Hypothyroidism, unspecified; I10 Essential (primary) hypertension; F32.A Depression, unspecified; F17.200 Nicotine dependence, unspecified, uncomplicated; C50.911 Malignant neoplasm of unspecified site of right female breast; J20.8 Acute bronchitis due to other specified organisms; B97.89 Other viral agents as the cause of diseases classified elsewhere; J44.0 Chronic obstructive pulmonary disease with (acute) lower respiratory infection; B97.10 Unspecified enterovirus as the cause of diseases classified elsewhere; Z92.3 Personal history of irradiation; Z79.899 Other long term (current) drug therapy; Z79.890 Hormone replacement therapy; Z79.52 Long term (current) use of systemic steroids

== ENCOUNTER → 2025-01-12 | Outpatient (CLI) | payer MEDICARE, BC ==
[~2025-01-12] MED LIST changes: +CEFD250S26 PO; +GUAI100S51 PO; +PRED10TA2 PO; +PRED20TA PO
== END ==
LOC: M PLARAD 08:21
PROVIDERS: ATTEND Internal Medicine Medical Oncology
DX: C50.811 Malignant neoplasm of overlapping sites of right female breast (principal)
CPT/HCPCS: 78815; A9552